=== PATIENT | female | born 1955 | race Caucasian/White ===

== ENCOUNTER 2016-12-12 02:55 | Emergency (ER) | payer OTHER ==
[~2016-12-12] VITALS: Ht 157.5 cm; Wt 69.3 kg
[~2016-12-12 02:55] MED LIST: ATOR10TA9 PO; LEVO25TA4 PO; LEVO88TA4 PO; METF100010 PO; METF500T4 PO
[2016-12-12 05:04] VITALS: BP 132/81
== END 2016-12-12 05:05 | disposition home or self-care (01) ==
LOC: ED 04:18
DX: N39.0 Urinary tract infection, site not specified (principal); R31.29 Other microscopic hematuria; E11.9 Type 2 diabetes mellitus without complications; E03.9 Hypothyroidism, unspecified
CPT/HCPCS: 81001; 87086; 99284